=== PATIENT | male | born 1965 | race African-American/Black ===

== ENCOUNTER 2017-12-27 13:06 | Emergency (ER) | payer MEDICAID ==
[~2017-12-27] VITALS: Ht 177.8 cm; Wt 81.6 kg
[~2017-12-27 13:06] MED LIST: UNOBMED
[2017-12-27] MEDS ORDERED: Ketorolac 60mg Inj IM ONE (13:45)
--- NOTE | 2017-12-27 13:46 | Emergency Room Report ---
History of Present Illness General Chief Complaint: Lower Back Pain or Injury Source: Patient Present Illness HPI Patient is a 52-year-old male who presented after increased left sided flank pain. Patient had sudden onset of symptoms this morning. Patient reports having no hematuria. He states that he had been having increased pain since morning which wax and wane. Patient denies any vomiting. He denies any fever. He reports urinating normally. Has prior history of kidney stones. He states that he takes Haldol. He denies any prior surgeries. Allergies: Coded Allergies: No Known Allergies (Unverified , 12/27/17) UNABLE TO ASSESS (Unverified , 12/27/17) Patient History Reviewed Nursing Documentation: PMH: Agreed; PSxH: Agreed Nursing Documentation-PMH Past Medical History: No Stated History Review of Systems All Other Systems: negative except mentioned in HPI Physical Exam Vital Signs Date Time Temp Pulse Resp B/P (MAP) Pulse Ox O2 Delivery O2 Flow Rate FiO2 12/27/17 13:07 98.0 76 18 137/71 99 Room Air 98.1 Sp02 EP Interpretation: reviewed, normal General Appearance: normal inspection, well appearing, no apparent distress, alert, GCS 15 Head: atraumatic ENT: normal ENT inspection, hearing grossly normal, normal voice Neck: normal inspection, full range of motion, supple, no bony tend Respiratory: normal inspection, lungs clear, normal breath sounds, no respiratory distress, no retraction, no wheezing Cardiovascular #1: regular rate, rhythm, no edema Gastrointestinal: normal inspection, soft, no guarding, no hernia, tenderness Genitourinary: CVA tenderness (L) Musculoskeletal: normal inspection, back normal, normal range of motion Neurologic: normal inspection, alert, responsive, speech normal Psychiatric: normal inspection, judgement/insight normal, mood/affect normal Skin: normal inspection, normal color, no rash Medical Decision Making Diagnostic Impression: Primary Impression: Pancreatitis, alcoholic, acute ER Course Patient presented for flank pain. Differential diagnosis included was not limited to pneumonia, renal stone, rib fracture, pulmonary embolism, ulcer, enteritis, pyelonephritis among others. CT imaging was ordered due to patient' s symptoms. Patient was noted to have evidence of acute on chronic pancreatitis on CT imaging of the abdomen pelvis read by radiology. The laboratory to studies showed elevated liver function tests as well as elevated lipase consistent with the patient's pancreatitis. Patient given IV fluids as well as IV pain medications. The patient be admitted for further monitoring and treatment. He does have prior history of alcohol abuse. Patient was discussed with capitated physician from [facility] for continuity of care. Labs Test 12/27/17 13:57 12/27/17 15:29 12/27/17 16:21 Urine Color Yellow Urine Appearance Clear Urine pH 5 (4.5-8.0) Urine Specific [place] 1.030 (1.005-1.035) Urine Protein 2+ (NEGATIVE) Urine Glucose (UA) Negative (NEGATIVE) Urine Ketones 1+ (NEGATIVE) Urine Occult Blood 1+ (NEGATIVE) Urine Nitrite Negative (NEGATIVE) Urine Bilirubin 1+ (NEGATIVE) Urine Ictotest Negative Urine Urobilinogen 8 MG/DL (0.0-1.0) Urine Leukocyte Esterase 1+ (NEGATIVE) Urine RBC 0-2 /HPF (0 - 0) Urine WBC 2-4 /HPF (0 - 0) Urine Squamous Epithelial Cells Occasional /LPF Urine Bacteria Few /HPF (NONE) Urine Fine Granular Casts 0-2 /LPF (NONE) Urine Mucus Moderate /LPF (NONE/OCC) White Blood Count 8.3 K/UL (4.8-10.8) Red Blood Count 4.93 M/UL (4.70-6.10) Hemoglobin 13.8 G/DL (14.2-18.0) Hematocrit 42.6 % (42.0-52.0) Mean Corpuscular Volume 86 FL (80-99) Mean Corpuscular Hemoglobin 27.9 PG (27.0-31.0) Mean Corpuscular Hemoglobin Concent 32.3 G/DL (32.0-36.0) Red Cell Distribution Width 12.5 % (11.6-14.8) Platelet Count 257 K/UL (150-450) Mean Platelet Volume 6.4 FL (6.5-10.1) Neutrophils (%) (Auto) 86.6 % (45.0-75.0) Lymphocytes (%) (Auto) 7.6 % (20.0-45.0) Monocytes (%) (Auto) 5.4 % (1.0-10.0) Eosinophils (%) (Auto) 0.0 % (0.0-3.0) Basophils (%) (Auto) 0.5 % (0.0-2.0) Sodium Level 131 MMOL/L (136-145) Potassium Level 4.6 MMOL/L (3.5-5.1) Chloride Level 97 MMOL/L (98-107) Carbon Dioxide Level 23 MMOL/L (21-32) Anion Gap 11 mmol/L (5-15) Blood Urea Nitrogen 20 mg/dL (7-18) Creatinine 1.1 MG/DL (0.55-1.30) Estimat Glomerular Filtration Rate > 60 mL/min (>60) Glucose Level 155 MG/DL (74-106) Calcium Level 8.6 MG/DL (8.5-10.1) Total Bilirubin 2.5 MG/DL (0.2-1.0) Direct Bilirubin 0.9 MG/DL (0.0-0.3) Aspartate Amino Transf (AST/SGOT) 268 U/L (15-37) Alanine Aminotransferase (ALT/SGPT) 342 U/L (12-78) Alkaline Phosphatase 126 U/L (46-116) Total Protein 7.4 G/DL (6.4-8.2) Albumin 3.5 G/DL (3.4-5.0) Globulin 3.9 g/dL Albumin/Globulin Ratio 0.9 (1.0-2.7) Lipase 829 U/L (73-393) Last Vital Signs Date Time Temp Pulse Resp B/P (MAP) Pulse Ox O2 Delivery O2 Flow Rate FiO2 12/27/17 13:07 98.0 76 18 137/71 99 Room Air 98.1 Status: unchanged Disposition: XFER SHT-TRM HOSP Condition: Serious Unruly Good MD Dec 27, 2017 13:46
[2017-12-27 13:48] VITALS: BP 137/71
[2017-12-27 14:32] LABS: APPEARANCE,URINE CLEAR; BILIRUBIN, URINE 1+ (NEGATIVE); GLUCOSE, URINE (UA) NEGATIVE (NEGATIVE); KETONES,URINE 1+ (NEGATIVE); LEUKOCYTE ESTERASE ,URINE 1+ (NEGATIVE); NITRITE,URINE NEGATIVE (NEGATIVE); PH,URINE 5 (4.5-8.0); PROTEIN,URINE 2+ (NEGATIVE); UROBILINOGEN,URINE 8 MG/DL (0.0-1.0)
[2017-12-27 14:36] LABS: COLOR,URINE YELLOW
--- NOTE | 2017-12-27 15:01 | Diagnostic Imaging Report ---
Indication: Abdominal pain Technique: Continuous helical transaxial imaging of the abdomen and pelvis was obtained from the lung bases to the pubic symphysis. No intravenous contrast was administered. Coronal 2-D reformats were also obtained. Automatic Exposure Control was utilized. Total Dose length Product (DLP): 615.[address] Dose Index Volume (CTDIvol): 11.73 mGy Comparison: none Findings: The lung bases are clear. The pancreas is ill-defined and there is some soft tissue stranding securely in the area of the head of the pancreas. Findings consistent with acute pancreatitis. There is likely acute on chronic pancreatitis given the multiple parenchymal calcifications which is indicative of chronic pancreatitis. There is no abscess or phlegmon. No evidence of bowel obstruction, free fluid or free air identified. The appendix is seen and appears normal. There is no nephrolithiasis or hydronephrosis. Gallbladder lumen is slightly dense suggestive of intraluminal stones or sludge. IMPRESSION: Acute on chronic pancreatitis. Gallbladder sludge versus stones. . The CT scanner at [facility] is accredited by the [employer] and the scans are performed using dose optimization techniques as appropriate to a performed exam including Automatic Exposure control.
[2017-12-27] MEDS ORDERED: Morphine Sulfate 4mg/ml Inj IVP ONE (15:15)
[2017-12-27 15:44] LABS: HEMATOCRIT 42.6 % (42.0-52.0); HEMOGLOBIN 13.8 G/DL (14.2-18.0); MEAN CORPUSCULAR VOLUME 86 FL (80-99); PLATELET COUNT 257 K/UL (150-450); RED BLOOD COUNT 4.93 M/UL (4.70-6.10); RED CELL DISTRIBUTION WIDTH 12.5 % (11.6-14.8); WHITE BLOOD COUNT 8.3 K/UL (4.8-10.8)
[2017-12-27 15:51] LABS: LYMPHOCYTES % (AUTO) 7.6 % (20.0-45.0); NEUTROPHILS % (AUTO) 86.6 % (45.0-75.0)
[2017-12-27 15:52] LABS: BASOPHILS % (AUTO) 0.5 % (0.0-2.0); MONOCYTES % (AUTO) 5.4 % (1.0-10.0)
[2017-12-27 15:57] VITALS: BP 135/76
[2017-12-27 15:58] LABS: ANION GAP 11 mmol/L (5-15); BLOOD UREA NITROGEN 20 mg/dL (7-18); CALCIUM 8.6 MG/DL (8.5-10.1); CARBON DIOXIDE 23 MMOL/L (21-32); CHLORIDE 97 MMOL/L (98-107); CREATININE 1.1 MG/DL (0.55-1.30); POTASSIUM 4.6 MMOL/L (3.5-5.1); SODIUM 131 MMOL/L (136-145)
[2017-12-27 16:08] LABS: ALANINE AMINOTRANSFERASE 342 U/L (12-78); ALBUMIN 3.5 G/DL (3.4-5.0); ALBUMIN/GLOBULIN RATIO 0.9 (1.0-2.7); ALKALINE PHOSPHATASE 126 U/L (46-116); ASPARTATE AMINO TRANSFERASE 268 U/L (15-37); BILIRUBIN,TOTAL 2.5 MG/DL (0.2-1.0)
[2017-12-27 16:14] LABS: BILIRUBIN,DIRECT 0.9 MG/DL (0.0-0.3)
[2017-12-27 16:56] LABS: INR 1.5 (0.9-1.1)
[2017-12-27 18:24] VITALS: BP 138/74
[2017-12-27] MEDS ORDERED: cefTRIAXone 1 GM in NS 55 ML IVPB ONE (19:00)
[2017-12-27] MEDS ORDERED: Pantoprazole Inj IVP ONE (19:15)
[2017-12-27 20:37] VITALS: BP 143/82
[2017-12-27 21:00] VITALS: BP 143/82
== END 2017-12-27 21:00 | disposition short-term general hospital (02) ==
LOC: EDUNIT# 13:06 → EDBD 13:06 → EMR 16:27
DX: K85.20 Alcohol induced acute pancreatitis without necrosis or infection (principal)
CPT/HCPCS: 36415; 74176; 80053; 81003; 82248; 83690; 85025; 85610; 85730; 87081; 96365; 96372; 96375; 99284; C9113; J0696; J2270; J2405; 96374